=== PATIENT | male | born 1970 | race Caucasian/White ===

== ENCOUNTER 2018-02-13 11:26 | Emergency (ER) | payer OTHER ==
[~2018-02-13] VITALS: Ht 177.8 cm; Wt 93.0 kg
[2018-02-13 11:51] LABS: ABSOLUTE EOSINOPHILS 0.1 thou/uL (0.0-0.7); ABSOLUTE LYMPHOCYTES 1.1 thou/uL (0.8-5.3); ABSOLUTE MONOCYTES 0.5 thou/uL (0.0-1.2); ABSOLUTE NEUTROPHILS 6.2 thou/uL (1.6-8.1); BASOPHILS 0.6 %; EOSINOPHILS 1.2 %; HEMATOCRIT 50.7 % (42.0-52.0); LYMPHOCYTES 13.5 %; MCH 30.8 pg (26.0-34.0); MCHC 33.5 g/dL (28.0-37.0); MCV 92.1 fL (80.0-100.0); MONOCYTES 6.3 %; MPV 9.5 fl. (7.2-11.1); NUCLEATED RBCS 0 /100WBC; PLATELET COUNT* 202 thou/uL (150-400); POLYS 78.4 %; RBC 5.51 mil/uL (4.50-6.00); RDW-CV 14.5 % (10.5-14.5); WBC 7.9 thou/uL (4.0-11.0)
[2018-02-13 11:55] LABS: URINE BILIRUBIN NEGATIVE (Negative); URINE BLOOD NEGATIVE (Negative); URINE CLARITY CLEAR; URINE COLOR YELLOW; URINE GLUCOSE-RANDOM NEGATIVE (Negative); URINE KETONES NEGATIVE (Negative); URINE LEUKOCYTES-REFLEX NEGATIVE (Negative); URINE NITRITE-REFLEX NEGATIVE (Negative); URINE PROTEIN NEGATIVE (Negative); URINE UROBILINOGEN 0.2 E.U./dl (0.2-1.0)
[2018-02-13 12:07] LABS: ANION GAP 6 mmol/L (7-16); BUN 10 mg/dL (7-18); CHLORIDE 103 mmol/L (98-107); CO2 29 mmol/L (21-32); CREATININE 1.2 mg/dL (0.6-1.3); GLUCOSE 90 mg/dL (70-99); POTASSIUM 3.9 mmol/L (3.5-5.1); SODIUM 138 mmol/L (136-145)
[2018-02-13 12:14] LABS: ALBUMIN 3.7 g/dL (3.4-5.0); SGOT 32 U/L (15-37); SGPT 43 U/L (30-65); TOTAL BILIRUBIN 0.4 mg/dL (<0.1-1.0); TROPONIN-I LEVEL <0.06 ng/mL (<0.06)
[2018-02-13 12:34] LABS: ALKALINE PHOSPHATASE 79 U/L (46-116)
[2018-02-13 14:04] VITALS: BP 131/84
--- NOTE | 2018-02-13 14:36 | EKG ---
[place] [address] ELECTROCARDIOGRAM REPORT Name: SHEA NELSON Room: 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1970 Requested By: Baylee Gaspar Order Number: [id number] MD: Bryan Johnson Measurements Intervals [place] Rate: 73 P: 54 AR: 130 QRS: 39 QRSD: 98 T: 0 QT: 373 QTc: 411 Interpretive Statements Sinus rhythm Abnormal R-wave progression, early transition Minimal ST elevation, anterior leads No previous ECG available for comparison Electronically Signed On 02-13-2018 14:36:30 [employer] by Bryan Johnson [email or web address] <ELECTRONICALLY SIGNED> By: Bryan Johnson MD, [facility] 02/13/18 1436 1219 18 Bryan Johnson MD, FACC /EPI
--- NOTE | 2018-02-13 14:37 | EKG ---
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1970 Requested By: Isaac Johnson Order Number: [id number] MD: Bryan Johnson Measurements Intervals [place] Rate: 77 P: 47 VA: 132 QRS: 39 QRSD: 101 T: -18 QT: 372 QTc: 421 Interpretive Statements Sinus rhythm Probable left atrial enlargement RSR' in V1 or V2, right VCD or RVH Inferior infarct, age indeterminate Minimal ST elevation, anterior leads Baseline wander in lead(s) V3 No previous ECG available for comparison Electronically Signed On 02-13-2018 14:36:57 [employer] by Bryan Johnson [email or web address] <ELECTRONICALLY SIGNED> By: Bryan Johnson MD, FACC 02/13/18 1436 1331 1331 Bryan Johnson MD, FAC /EPI
== END 2018-02-13 14:04 | disposition home or self-care (01) ==
LOC: M.ERS 11:26
PROVIDERS: Physician Assistant
DX: R51 Headache (principal); R20.0 Anesthesia of skin; Z86.14 Personal history of Methicillin resistant Staphylococcus aureus infection